=== PATIENT | female | born 1985 | race Caucasian/White ===

== ENCOUNTER 2025-02-25 15:58 | Emergency (ER) | payer OTHER ==
[~2025-02-25] VITALS: Ht 165.1 cm; Wt 83.9 kg
[2025-02-25 16:14] VITALS: BP 119/70; TEMP 98
[2025-02-25] MEDS ORDERED: BACI28.433 TP (16:30)
[2025-02-25] MEDS ORDERED: TDAP [DIPH/PERTUSSIS/TET] 0.5 ML VIAL IM ONE (16:35)
[2025-02-25] MEDS: TDAP [DIPH/PERTUSSIS/TET] 0.5 ML VIAL IM ONE (16:40)
[2025-02-25 16:45] VITALS: O2SAT 97
== END 2025-02-25 16:46 | disposition home or self-care (01) ==
LOC: ER 16:07
DX: S61.411A Laceration without foreign body of right hand, initial encounter (principal); Z88.0 Allergy status to penicillin; W26.8XXA Contact with other sharp object(s), not elsewhere classified, initial encounter; Y93.89 Activity, other specified; Y92.89 Other specified places as the place of occurrence of the external cause; Y99.8 Other external cause status
CPT/HCPCS: 90715